=== PATIENT | male | born 1985 | race Caucasian/White ===

== ENCOUNTER 2019-04-01 15:11 | Emergency (ER) | payer SELFPAY ==
[~2019-04-01] VITALS: Ht 177.8 cm; Wt 84.1 kg
[~2019-04-01 15:11] MED LIST: NOCURR
[2019-04-01 17:06] VITALS: BP 128/74
== END 2019-04-01 17:12 | disposition home or self-care (01) ==
LOC: EMS 15:15
DX: K40.90 Unilateral inguinal hernia, without obstruction or gangrene, not specified as recurrent (principal); F14.90 Cocaine use, unspecified, uncomplicated; F12.90 Cannabis use, unspecified, uncomplicated

== ENCOUNTER 2019-04-27 20:50 | Emergency (ER) | payer MEDICAID ==
[~2019-04-27] VITALS: Ht 177.8 cm; Wt 84.1 kg
[2019-04-27 21:47] VITALS: BP 121/75
== END 2019-04-27 22:30 | disposition home or self-care (01) ==
LOC: EMS 20:52
DX: H61.22 Impacted cerumen, left ear (principal); F14.90 Cocaine use, unspecified, uncomplicated; F12.90 Cannabis use, unspecified, uncomplicated
CPT/HCPCS: 69209; 69210